=== PATIENT | male | born 1970 | race Caucasian/White ===

== ENCOUNTER 2016-12-24 12:00 | Inpatient (IN) | payer OTHER ==
--- NOTE | 2016-12-20 10:59 | PREOPHP ---
DATE OF ADMISSION: 12/24/2016 REASON FOR CONSULTATION: The patient to have surgery with Dr. Dar Dewey 12/24/2016. CONSULTATION REQUESTED BY: Dr. Dar Dewey for medical evaluation and clearance of a 46-year-old gentleman about to undergo surgery. Thank you, Dr. Dewey, for allowing us participate in care of this patient. Keyon Rodriguez is a 46-year-old gentleman, issues with his back, is currently being admitted for a microdiskectomy at L5-S1. In terms of his. PRIOR SURGICAL PROCEDURES: Patient has had an appendectomy and also a childhood abdominal surgery, not quite sure what the problem was. PAST MEDICAL HISTORY: He has had no medical hospitalizations. He has broken no bones. MEDICATIONS: Takes no chronic medications other than occasional [id number] Nexium. ALLERGIES: NOT ALLERGIC TO ANY MEDICATIONS. SOCIAL HISTORY: Patient is , has 2 children and 2 grandchildren. Considers himself a social smoker, as well as a social drinker of alcoholic beverages. Drinks decaf coffee. Is employed and usually has no difficulty sleeping at night. FAMILY HISTORY: Both parents are alive. Father 80, has hypertension. Mother 61, has hypertension as well had ovarian cancer or ovarian problems. Five siblings in good health. There is a family history of cancer, hypertension and thyroid issues in a sister. REVIEW OF SYSTEMS: HEENT: Denies any headaches. CARDIORESPIRATORY: Denies any chest pain, shortness of breath. GASTROINTESTINAL: No melena or hematemesis. GENITOURINARY: No urgency, frequency. MUSCULOSKELETAL: Positive for back problems. NEUROPSYCHIATRIC: Unremarkable. GENERAL HEALTH: As above. PHYSICAL EXAMINATION: VITAL SIGNS: Patient's blood pressure was 110/80, pulse was 60 and regular, respirations were 17, temperature 98.4. Height 5 feet, 8 inches, weight 160 pounds. GENERAL: Patient was noted to be a well-developed, well- nourished male, alert, cooperative, in no apparent acute distress. Oriented to time, place, and person. HEENT: Head was atraumatic. Eyes: Pupils were equal, reacted to light and accommodation. Fundi were benign. Tympanic membranes were unremarkable. Nose was negative. Mouth was unremarkable. Fair oral hygiene was present. NECK: Supple without any rigidity. Trachea was midline. Thyroid was unremarkable. Neck veins were flat. Carotid pulses were equal. No bruits were heard. BACK: Unremarkable, other than some lower back tenderness. CHEST: Symmetrical. BREAST AND AXILLARY: Did not reveal any masses. LUNGS: Clear to percussion and auscultation. HEART: PMI was at the 5th intercostal space at the midclavicular line. A regular sinus rhythm was noted. No significant murmurs, rubs, gallops being elicited. ABDOMEN: Soft. Good bowel sounds were noted. No significant organomegaly, masses or tenderness. Scar from prior surgery was noted. GENITALIA: Normal male external genitalia. RECTAL AND PROSTATIC: Per PCP. EXTREMITIES: Did not reveal any clubbing, edema, or cyanosis. Peripheral pulses were physiologic. SKIN: Moist and warm without any eruptions. LYMPHATIC: No gross lymphadenopathy was noted. NEUROLOGIC: Exam was grossly intact. IMPRESSION: 1. Lumbar disk disease at L5-S1. 2. Stable health. LABORATORY AND OTHER DATA: Review revealed the following. Patient's chemistry panel revealed normal electrolytes, glucose, BUN, creatinine, liver function tests. CBC, sed rate, UA. PT and PTT were normal. The patient's EKG was normal as was his chest x-ray. DISCUSSION: Dr. Dewey, I see no contraindications to patient undergoing current proposed surgery under desired form of anesthesia and we will follow him along with you during his stay at [facility]. Thank you again, Dr. Dewey, for allowing us participate in the care of this patient. Dictated By: Kye Hernandez MD /nathan/ping /Document#: [id number]
[~2016-12-24] VITALS: Ht 175.3 cm; Wt 71.2 kg
[~2016-12-24 12:00] MED LIST: CEFAZOLIN 2 GM/50 ML (PMX) 50 ML IVPB ONE; DENIES; LACTATED RINGER'S 1,000 ML IV* ONE
[2017-04-01] VITALS (27 sets, daily range): BP systolic 103–124; BP diastolic 57–86; PULSE 60–96; RESP 12–19; Ht 175.3 cm; Wt 71.2 kg
[2017-04-01] MEDS ORDERED: CEFAZOLIN 2 GM/50 ML (PMX) 50 ML IVPB SCH (06:00)
[2017-04-01] MEDS ORDERED: LACTATED RINGER'S 1L BAG IV* SCH (06:00)
[2017-04-01] MEDS ORDERED: OMEP20CA16 PO (13:32)
[2017-04-01] MEDS ORDERED: BUPIVACAINE 0.5%/EPI (SDV) 30 ML INJ ONE (15:27)
[2017-04-01] MEDS ORDERED: GELATIN SIZE 100 SPONGE ONE (15:27)
[2017-04-01] MEDS ORDERED: BUPIVACAINE 0.25% (MPF) 30 ML INJ ONE (15:27)
[2017-04-01] MEDS ORDERED: POLYMYXIN/BACITRACIN 1L IRRIG ONE (15:28)
[2017-04-01] MEDS ORDERED: THROMBIN 5000 UNIT VIAL ONE (15:28)
[2017-04-01] MEDS ORDERED: SURGIFOAM POWDER 1 GM KIT ONE (15:29)
--- NOTE | 2017-04-01 15:46 | HPN ---
Date/Time of Note Date/Time of Note DATE: 04/01/17 TIME: 15:46 Interval H&P Admission Note Pt. seen H&P reviewed: No system changes LUCIANA DOMINIQUE PA-C Apr 01, 2017 15:46
[2017-04-01] MEDS ORDERED: ONDANSETRON 4 MG INJ IV PRN ×2 (16:00→17:00)
[2017-04-01] MEDS: CEFAZOLIN 1 GM/50 ML (PMX) 50 ML IVPB SCH (16:00)
[2017-04-01] MEDS ORDERED: ZOLPIDEM 5 MG TAB PO PRN (16:00)
[2017-04-01] MEDS ORDERED: CEPASTAT LOZENGE MT PRN (16:00)
[2017-04-01] MEDS ORDERED: HYDROmorphONE 0.5 MG/0.5 ML SYG IV PRN (16:00)
[2017-04-01] MEDS ORDERED: CYCLOBENZAPRINE 10 MG TAB PO PRN (16:00)
[2017-04-01] MEDS ORDERED: NALOXONE (0.4 MG/ML) INJ IV PRN (16:00)
[2017-04-01] MEDS ORDERED: DIPHENHYDRAMINE 50 MG INJ IV PRN ×2 (16:00→17:00)
[2017-04-01] MEDS ORDERED: HYDROmorphONE 0.2 MG/ML PCA IV SCH (16:00)
[2017-04-01] MEDS ORDERED: BISACODYL 10 MG SUPP PR PRN (16:00)
[2017-04-01] MEDS ORDERED: AL HYDROX/MG HYDROX/SIMETH 30 ML CUP PO PRN (16:00)
[2017-04-01] MEDS ORDERED: ACETAMINOPHEN 325 MG TAB PO PRN (16:00)
[2017-04-01] MEDS ORDERED: PROPOFOL 20 ML ONE (16:07)
[2017-04-01] MEDS ORDERED: ONDANSETRON 4 MG INJ ONE (16:07)
[2017-04-01] MEDS ORDERED: DEXAMETHASONE 4 MG/ML 1 ML INJ ONE (16:07)
[2017-04-01] MEDS ORDERED: CEFAZOLIN 1 GM INJ ONE (16:07)
[2017-04-01] MEDS ORDERED: MIDAZOLAM 1 MG/ML 2 ML INJ ONE (16:07)
[2017-04-01] MEDS ORDERED: ROCURONIUM 50 MG INJ ONE (16:07)
[2017-04-01] MEDS ORDERED: NEOSTIGMINE 3 MG/3 ML SYRINGE ONE (16:07)
[2017-04-01] MEDS ORDERED: CA CHLORIDE 10% 10 ML SYRINGE ONE (16:43)
--- NOTE | 2017-04-01 16:43 | RADRPT ---
PROCEDURE: XR lumbar spine CLINICAL INDICATION: Intraoperative TECHNIQUE: Cross-table lateral view of the lumbar spine obtained COMPARISON: None available FINDINGS: For the purposes of dictation the lowermost vertebral segment will be labeled L5. [place] are presen t posteriorly at the approximately L4-5 and S1 levels. There is preservation of the lumbar lordosis. Disc spaces are maintained in height. Anterior osteophytes are seen at multiple levels. IMPRESSION: Posterior needle localization at the approximately L4-5, S1 levels. Lumbar spondylosis/degenerative enthesopathy. RPTAT: QQ .Ambrose Carranza MD, Date Time Electronically viewed and signed by .Ambrose Carranza MD, on 04/01/2017 16:43 .O/
[2017-04-01] MEDS ORDERED: FENTAnyl 50 MCG/ML VIAL ONE (16:56)
[2017-04-01] MEDS ORDERED: LABETALOL HCL 20MG INJ IV PRN (17:00)
[2017-04-01] MEDS ORDERED: IPRATROPIUM (NEB) 0.5 MG/2.5 ML AMP HHN PRN (17:00)
[2017-04-01] MEDS ORDERED: hydrALAzine 20 MG INJ IV PRN (17:00)
[2017-04-01] MEDS ORDERED: MEPERIDINE 25 MG INJ IV PRN (17:00)
[2017-04-01] MEDS ORDERED: TRIMETHOBENZAMIDE 100 MG/ML VIAL IM PRN (17:00)
[2017-04-01] MEDS ORDERED: HYDROmorphONE (0.2 MG/ML) 10ML SYG IV PRN ×3 (17:00)
[2017-04-01] MEDS ORDERED: ALBUTEROL 0.083% (NEB) 2.5 MG/3 ML AMP HHN PRN (17:00)
[2017-04-01] MEDS ORDERED: OXYCODONE/ACETAMINOPHEN (5/325) TAB PO PRN ×2 (17:00)
[2017-04-01] MEDS ORDERED: MIDAZOLAM 1 MG/ML 2 ML INJ IV PRN (17:00)
[2017-04-01] MEDS ORDERED: EPHEDrine SULFATE 50 MG/5 ML SYG IV PRN (17:00)
[2017-04-01] MEDS ORDERED: FENTAnyl 50 MCG/ML VIAL IV PRN ×3 (17:00)
--- NOTE | 2017-04-01 17:09 | RADRPT ---
PROCEDURE: XR lumbar spine CLINICAL INDICATION: Intraoperative TECHNIQUE: Cross-table lateral view of the lumbar spine obtained COMPARISON: 04/01/2017 at 04:33 p.m. FINDINGS: Previous vertebral numbering has been used for the purpose of dictation. Surgical marker is identif ied at the level of L4-L5 disc space. There is preservation of the lumbar lordosis. The vertebral [place] heights are maintained. There is mild disc space narrowing at L4-L5. There is severe disc height loss at L5-S1. IMPRESSION: Vertebral numbering as before. Surgical marker at the level of L4-L5 disc space. Transitional anatomy with sacralization of S1. The surgical marker in that case is positioned at L5- S1. RPTAT: BB .Gali Stevens MD, MD Date Time Electronically viewed and signed by .Gali Stevens MD, on 04/01/2017 17:09 .O/
--- NOTE | 2017-04-01 17:39 | SIPON ---
Date/Time of Note Date/Time of Note DATE: 04/01/17 TIME: 17:38 Operative Report Preoperative Diagnosis Right L5-S1 disc herniation Postoperative Diagnosis Right L5-S1 disc herniation Operation/Procedure Performed Right L5-S1 discectomy Surgeon see signature line senior sales assistant Radha Roth Anesthesia: general Estimated blood loss: 10 - 50 ml's Transfusion Required none Specimen Disc Grafts/Implants none Complications none BEVERLY STEWART MD Apr 01, 2017 17:39
--- NOTE | 2017-04-01 20:02 | OPR ---
DATE OF OPERATION: 04/01/2017 PREOPERATIVE DIAGNOSIS: Right L5-S1 disk herniation with radiculopathy. POSTOPERATIVE DIAGNOSIS: Right L5-S1 disk herniation with radiculopathy. PROCEDURES: 1. Right L5-S1 lumbar microdiskectomy. 2. Use of operative microscope. 3. Use of C-arm fluoroscopy with interpretation without radiologist present. 4. Epidural injection via catheter. 5. Intraoperative neuromonitoring (1 hour). PRIMARY SURGEON: Dar Dewey MD COMMAND POST CRAFTSMAN: ALMA Stevenson NEED FOR NOTE KEEPER: During this spinal surgical procedure, my plumber assistant was used to retrac t and protect the spinal nerves and dural sac. My plumber assistant also employed the suction catheters to evacuate blood from the surgical field to improve visualization of the neural structures. The malcolm tant was medically necessary to facilitate the completion of the surgery in a safe and expeditious shekhar. [facility] [place] regulations, as well as hospital bylaws, preclude the use of non-license d health care personnel, such as operating room technicians, to perform these functions. FINDINGS: At the start of the case, neuromonitoring revealed right L5 and S1 amplitude down 40%. A t the end of the case, nerve signals were normal. The patient had a right-sided herniation at L5-S1 . ESTIMATED BLOOD LOSS: Less than 30 mL. DRAINS: None. SPECIMENS: None. COMPLICATIONS OF PROCEDURES: None. ANESTHESIOLOGIST: Arian Karimi MD TYPE OF ANESTHESIA: General. INDICATIONS FOR PROCEDURE: This is a 46-year-old gentleman with right lumbosacral radiculopathy in the setting of a disk herniation. He failed nonoperative measures, therefore, I recommended proceed ing with above-mentioned surgery. Preoperatively, we discussed the risks, benefits and alternatives . He understood and wished to proceed. DESCRIPTION OF PROCEDURE IN DETAIL: The patient was identified in the preoperative holding area, [facility], taken to the operating room, where he was successfully placed under general an esthesia. Neuromonitoring leads were placed, sequential compressive devices were applied. Marina ca theter was not introduced. Neuromonitoring was utilized during the procedure for 1 hour to include SSEP, MEP and EMG. This was performed by [employer]. Start time was 4:30 p.m., closure time was 5:30 p.m. The patient was placed in downward turned prone position over a Sanket frame. All [place] prominences were well padded. The back was then prepped and draped in usual sterile fashion. Sp inal needles were placed, lateral localizing films obtained to confirm the correct levels. Once thi s was confirmed, I injected Marcaine and epinephrine. Incision was then made over the L5-S1 level. Incision was taken down to the dorsal fascia, which was incised with Bovie cautery. I then subperi osteally dissected the right L5 lamina. Marline retractor was placed. Lateral films obtained to con firm the correct levels. Once this was confirmed, microscope was brought in. A right-sided hemilam inotomy, partial medial facetectomy and foraminotomy were performed. Ligamentum flavum was then sha rply dissected. My plumber assistant then retracted neural elements medially. I identified the annulus, ma de an annulotomy, followed by a limited microdiskectomy. Once this was done, all nerve signals retu rned to normal. I irrigated the disk space and the wound. Hemostasis was achieved with Surgifoam a nd bipolar cautery. Valsalva maneuver was performed and there was no leak of CSF. The wound was dr y and therefore, I elected not to place a drain. I passed an epidural catheter through which I inje cted 100 mcg of fentanyl. I injected PPP and thrombin over the dura for hemostatic purposes. Retra ctors removed and I closed the deep fascia with a #1 Vicryl stitch. I closed subcutaneous tissue wi th 2-0 Vicryl stitch. A 4-0 Monocryl closure was then performed. Microscope was taken off the guru zuniga. Dermabond was then applied. The patient was then awakened from anesthesia and taken to recovery room in stable condition. Lap, sponge and instrument counts were correct x2. There were no appare nt complications during the procedure. The patient will be admitted to the orthopedic shearer for routine postoperative care to include pain c ontrol, neurovascular checks, antibiotics and physical therapy. Dictated By: DAR ANAYA/KECIA Conf#: [id number] DID#: [id number] CC: LUCIANA DOMINIQUE;*EndCC*
[2017-04-01] MEDS: DOCUSATE SODIUM 100 MG CAP PO SCH (20:30)
[2017-04-01] MEDS: D5W-0.45 NACL + KCL 20 MEQ 1,000 ML IV SCH (20:36)
[2017-04-02 00:39] VITALS: BP 107/56; RESP 18
[2017-04-02] MEDS: CEFAZOLIN 1 GM/50 ML (PMX) 50 ML IVPB SCH ×2 (01:01→07:29)
[2017-04-02] MEDS: D5W-0.45 NACL + KCL 20 MEQ 1,000 ML IV SCH ×2 (01:09→07:29)
[2017-04-02 05:53] LABS: BASOPHILS % 0.2 % (0.0-2.0); HEMATOCRIT 39.9 % (42.0-52.0); HEMOGLOBIN 13.5 g/dl (14.0-18.0); LYMPHOCYTES # 0.8 10^3/ul (0.8-2.9); LYMPHOCYTES % 7.3 % (15.0-51.0); MEAN CORPUSCULAR HEMOGLOBIN 28.8 pg (29.0-33.0); MEAN CORPUSCULAR HGB CONC 33.8 g/dl (32.0-37.0); MEAN CORPUSCULAR VOLUME 85.1 fl (82.0-101.0); MEAN PLATELET VOLUME 10.1 fl (7.4-10.4); MONOCYTE # 0.3 10^3/ul (0.3-0.9); MONOCYTES % 2.5 % (0.0-11.0); NEUTROPHIL # 9.7 10^3/ul (1.6-7.5); NEUTROPHILS % 89.7 % (39.0-77.0); PLATELET COUNT 209 10^3/UL (140-415); RED BLOOD COUNT 4.69 10^6/ul (4.70-6.10); RED CELL DISTRIBUTION WIDTH 12.6 % (11.5-14.5); WHITE BLOOD COUNT 10.8 10^3/ul (4.8-10.8)
[2017-04-02 06:30] LABS: CALCIUM 8.8 mg/dl (8.4-10.2); CREATININE 0.73 mg/dl (0.61-1.24); MAGNESIUM 1.6 mg/dl (1.7-2.5); POTASSIUM 4.2 mmol/L (3.5-5.1)
[2017-04-02 07:33] VITALS: BP 106/63; RESP 20
[2017-04-02] MEDS: DOCUSATE SODIUM 100 MG CAP PO SCH (08:18)
[2017-04-02] MEDS ORDERED: HYDROCODONE/APAP (10/325) TAB PO SCH (09:30)
[2017-04-02] MEDS ORDERED: HYDROCODONE/APAP (10/325) TAB PO PRN ×2 (10:00)
[2017-04-02] MEDS ORDERED: MAGNESIUM OXIDE 400 MG TAB PO ONE (13:30)
--- NOTE | 2017-04-02 13:32 | CONS ---
Date/Time of Note Date/Time of Note DATE: 04/02/17 TIME: 13:30 Assessment/Plan Assessment/Plan Problems: (1) S/P lumbar microdiscectomy Status: Acute Comment: Successfully postop. He is having appropriate levels of postoperative pain is adequately controlled. There are no complications and he should be stable for discharge and outpatient rehabilitation with good rehab potential as per the spinal surgeon (2) Hypomagnesemia Status: Acute Comment: Replace with a single dose orally (3) Lumbar disc disease with radiculopathy Status: Chronic Comment: Hopefully this will resolve completely Consultation Date/Type/Reason Admit Date/Time Apr 01, 2017 at 13:34 Date of Consultation: Apr 02, 2017 Type of Consultation: Internal medicine Reason for Consultation Operative assistance after right L4-L5 microdiscectomy for radiculopathy Referring Provider: BEVERLY STEWART MD Hx of Present Illness Charming 46-year-old male who been scheduled for the procedure earlier who is now come in and had a performed successfully. Constitutional: no complaints Eyes: no complaints ENT: no complaints Respiratory: no complaints Cardiovascular: no complaints Gastrointestinal: no complaints Genitourinary: no complaints Musculoskeletal: no complaints Skin: no complaints Neurologic: no complaints Past Medical History Medical History: other (Lumbar disc disease with right sided radiculopathy) Past Surgical History Past Surgical Hx: noncontributory Family History Significant Family History: no pertinent family hx Social History Alcohol Use: none Smoking Status: Never smoker Drug Use: none Exam/Review of Systems Vital Signs Vitals Vital Signs Date Time Temp Pulse Resp B/P Pulse Ox O2 Delivery O2 Flow Rate FiO2 04/02/17 09:35 16 04/02/17 07:33 97.7 65 106/63 99 04/01/17 23:00 Nasal Cannula 2.0 Intake and Output 04/01/17 04/01/17 04/02/17 15:00 23:00 07:00 Intake Total 1200 ml 1700 ml Output Total 15 ml 1200 ml Balance 1185 ml 500 ml Exam Constitutional: alert, oriented Head: atraumatic, normocephalic Eyes: EOMI, PERRL, nl conjunctiva, nl lids, nl sclera Neck: non-tender, supple Respiratory: clear to auscultation, normal air movement Cardiovascular: nl pulses, regular rate and rhythm Gastrointestinal: nl liver, spleen, non-tender, soft Musculoskeletal: nl extremities to inspection, nl gait and stance Neurological: DRUG AND ALCOHOL COUNSELOR II-XII intact, nl mental status, nl speech, nl strength Results Result Diagram: 04/02/17 0507 04/02/17 0507 Results 24 hrs Laboratory Tests Test 04/02/17 05:07 White Blood Count 10.8 Red Blood Count 4.69 L Hemoglobin 13.5 L Hematocrit 39.9 L Mean Corpuscular Volume 85.1 Mean Corpuscular Hemoglobin 28.8 L Mean Corpuscular Hemoglobin Concent 33.8 Red Cell Distribution Width 12.6 Platelet Count 209 Mean Platelet Volume 10.1 Neutrophils % 89.7 H Lymphocytes % 7.3 L Monocytes % 2.5 Eosinophils % 0.0 Basophils % 0.2 Nucleated Red Blood Cells % 0.0 Neutrophils # 9.7 H Lymphocytes # 0.8 Monocytes # 0.3 Eosinophils # 0.0 Basophils # 0.0 Nucleated Red Blood Cells # 0.0 Sodium Level 139 Potassium Level 4.2 Chloride Level 100 Carbon Dioxide Level 28 Anion Gap 15 Blood Urea Nitrogen 11 Creatinine 0.73 Glucose Level 141 Calcium Level 8.8 Magnesium Level 1.6 L Medications Medications Current Medications Potassium Chloride/Dextrose/ Sod Cl (D5-1/2ns + KCl 20 Meq) 1,000 ml @ 100 mls/ hr Q10H IV Last administered on 04/02/17 07:29; Admin Dose 100 MLS/HR; Start 04/01/17 at 15:46 Acetaminophen/ Hydrocodone Bitart ([place] (10/325)) 1 tab Q4H PRN PO PAIN LEVEL 1-5; Start 04/02/17 at 10:00 Acetaminophen/ Hydrocodone Bitart ([place] (10/325)) 2 tab Q4H PRN PO PAIN LEVEL 6-10 Last administered on 04/02/17 13:24; Admin Dose 2 TAB; Start 04/02/17 at 10:00 Hydromorphone HCl (Dilaudid) 0.2 mg Q1H PRN IV BREAKTHROUGH PAIN; Start at 16:00 Ondansetron HCl (Zofran Inj) 4 mg Q6H PRN IV NAUSEA AND/OR VOMITING; Start at 16:00 Bisacodyl (Dulcolax Supp) 10 mg DAILY PRN VT CONSTIPATION; Start 04/01/17 at 16:00 Docusate Sodium (Colace) 100 mg BID PO Last administered on 04/02/17t 08:18; Admin Dose 100 MG; Start 04/01/17 at 21:00 Al Hydrox/Mg Hydrox/Simethicone (Mag-Al Plus) 15 ml Q6H PRN PO CONSTIPATION/ DYSPEPSIA; Start 04/01/17 at 16:00 Acetaminophen (Tylenol Tab) 650 mg Q4H PRN PO PALM OR TEMP GREATER THAN 101.3F; Start 04/01/17 at 16:00 Cyclobenzaprine HCl (Flexeril) 10 mg TID PRN PO MUSCLE SPASMS; Start 04/01/17 at 16:00 Phenol (Cepastat Lozenge) 1 lozenge PRN PRN MT SORE THROAT; Start 04/01/17 at 16:00 Diphenhydramine HCl (Benadryl) 25 mg Q6H PRN IV ITCHING; Start 04/01/17 at 16: 00 Naloxone HCl (Narcan) 0.2 mg Q2M PRN IV RR 8 BREATHS/MIN OR LESS; Start at 16:00 Miscellaneous Information 1. Hold CASE SUPERVISOR at 1,000... CASE SUPERVISOR IV ; Start 04/01/17 at 16 :00 ANGÉLICA FERRARO MD Apr 02, 2017 13:32
--- NOTE | 2017-04-02 22:22 | DS ---
Date/Time of Note Date/Time of Note DATE: 04/02/17 TIME: 22:20 Discharge Summary Admission/Discharge Info Admit Date/Time Apr 01, 2017 at 13:34 Discharge Date/Time Apr 02, 2017 at 14:15 Discharge Diagnosis Lumbar discectomy Patient Condition: Good Procedures Lumbar discectomy Hx of Present Illness Back and leg pain Hospital Course Patient was admitted to the orthopedic shearer after undergoing the above procedure. His postoperative course was uncomplicated. By postoperative day 1 he was deemed stable for discharge with follow-up arranged with the undersigned Home Meds Reported Medications Omeprazole* (Omeprazole*) 20 Mg Capsule.dr, 20 MG PO DAILY Y for GASTROINTESTINAL UPSET, #30 CAP 04/01/17 Discontinued Reported Medications [Denies] No Conflict Check 05/15/09 Primary Care Provider Trevor Murray MD Pending Labs Laboratory Tests Test 04/02/17 05:07 White Blood Count 10.810^3/ul (4.8-10.8) Red Blood Count 4.6910^6/ul (4.70-6.10) Hemoglobin 13.5g/dl (14.0-18.0) Hematocrit 39.9% (42.0-52.0) Mean Corpuscular Volume 85.1fl (82.0-101.0) Mean Corpuscular Hemoglobin 28.8pg (29.0-33.0) Mean Corpuscular Hemoglobin Concent 33.8g/dl (32.0-37.0) Red Cell Distribution Width 12.6% (11.5-14.5) Platelet Count 78958^3/UL (140-415) Mean Platelet Volume 10.1fl (7.4-10.4) Neutrophils % 89.7% (39.0-77.0) Lymphocytes % 7.3% (15.0-51.0) Monocytes % 2.5% (0.0-11.0) Eosinophils % 0.0% (0.0-7.0) Basophils % 0.2% (0.0-2.0) Nucleated Red Blood Cells % 0.0/100WBC (0.0-0.0) Neutrophils # 9.710^3/ul (1.6-7.5) Lymphocytes # 0.810^3/ul (0.8-2.9) Monocytes # 0.310^3/ul (0.3-0.9) Eosinophils # 0.010^3/ul (0.0-0.5) Basophils # 0.010^3/ul (0.0-0.1) Nucleated Red Blood Cells # 0.010^3/ul (0.0-0.0) Sodium Level 139mmol/L (135-144) Potassium Level 4.2mmol/L (3.5-5.1) Chloride Level 100mmol/L (97-110) Carbon Dioxide Level 28mmol/L (21-31) Anion Gap 15 (8-16) Blood Urea Nitrogen 11mg/dl (7-20) Creatinine 0.73mg/dl (0.61-1.24) Glucose Level 141mg/dl (70-220) Calcium Level 8.8mg/dl (8.4-10.2) Magnesium Level 1.6mg/dl (1.7-2.5) BEVERLY STEWART MD Apr 02, 2017 22:22
== END 2017-04-02 14:15 | disposition home or self-care (01) | DRG 520 ==
LOC: REC 04-01 13:34 → MS1 04-01 19:30
PROVIDERS: ADMIT Specialist; ATTEND Specialist
PROC: 0SB40ZZ Excision of Lumbosacral Disc, Open Approach (ICD-10-PCS; principal; 2017-04-01 15:30)
DX: M51.17 Intervertebral disc disorders with radiculopathy, lumbosacral region (principal); E83.42 Hypomagnesemia
CPT/HCPCS: 72020; 80048; 83735; 85025; 86999; 97116; 97161; J0690; J1100; J1170; J2250; J2405; J2710; J3010; J3480; J7120